=== PATIENT | female | born 1980 | race Caucasian/White ===

== ENCOUNTER → 2021-08-09 | Outpatient (CLI) | payer BC | LOC: LAB 15:32 | DX: Z32.00 Encounter for pregnancy test, result unknown (principal) | CPT/HCPCS: 84702 ==

== ENCOUNTER → 2021-08-10 | Outpatient (CLI) | payer BC, OTHER ==
[~2021-08-10] VITALS: Ht 160 cm; Wt 74.5 kg
[~2021-08-10] MED LIST: COLACE 100MG C100 MG PO; NAPROXEN250 MG PO; ROXICODONE TAB 55 MG PO
[2021-08-10 16:21] LABS: BUN/CREATININE RATIO 20 (0-10)
== END ==
LOC: OPSV 15:27
PROVIDERS: Obstetrics & Gynecology
DX: Z53.9 Procedure and treatment not carried out, unspecified reason (principal)
CPT/HCPCS: 36415; 80053; 96372; J9250

== ENCOUNTER → 2021-08-13 | Outpatient (CLI) | payer BC | LOC: LAB 12:16 | DX: O00.90 Unspecified ectopic pregnancy without intrauterine pregnancy (principal) | CPT/HCPCS: 84702 ==

== ENCOUNTER 2021-08-15 15:50 | Observation (INO) | payer BC, OTHER ==
[2021-08-15 17:34] LABS: RED BLOOD COUNT 4.4 M/UL (4.00-5.10); WHITE BLOOD COUNT 12.8 K/UL (4.5-11.0)
[2021-08-15] MEDS ORDERED: COLACE 100MG C100 MG PO (19:31)
[2021-08-15] MEDS ORDERED: NAPROXEN250 MG PO (19:31)
[2021-08-15] MEDS ORDERED: ROXICODONE TAB 55 MG PO (19:31)
[2021-08-16 03:22] LABS: HEMOGLOBIN 11.8 gm/dl (12.3-15.3)
== END 2021-08-16 10:00 | disposition home or self-care (01) ==
LOC: OR 15:50 → OB 20:30 → OR 21:12 → OB 21:12
PROVIDERS: ADMIT Obstetrics & Gynecology
DX: O00.102 Left tubal pregnancy without intrauterine pregnancy (principal); K66.1 Hemoperitoneum; Z20.822 Contact with and (suspected) exposure to COVID-19; Z87.59 Personal history of other complications of pregnancy, childbirth and the puerperium; Z90.49 Acquired absence of other specified parts of digestive tract; Z88.2 Allergy status to sulfonamides; Z72.0 Tobacco use
CPT/HCPCS: 36415; 85014; 85018; 85025; 86850; 86900; 86901; G0378; J1100; J1170; J1885; J2250; J2405; J2704; J2765; J2795; J3010; J7120; U0002